=== PATIENT | female | born 1995 | race American Indian/Alaskan Native ===

== ENCOUNTER 2017-02-01 20:58 | Emergency (ER) | payer MEDICAID, OTHER ==
[2017-02-01 21:09] VITALS: BP 131/69
--- NOTE | 2017-02-03 01:03 | ED Elopement Review ---
ED Pt Elopement review - Call Back decision Pt Call Back Decision: Pt to F/U with PMD
== END 2017-02-01 22:20 | disposition left against medical advice (07) ==
LOC: ED 20:58
DX: K08.89 Other specified disorders of teeth and supporting structures (principal); R22.0 Localized swelling, mass and lump, head; Z53.21 Procedure and treatment not carried out due to patient leaving prior to being seen by health care provider

== ENCOUNTER 2017-05-22 14:54 | Emergency (ER) | payer MEDICAID ==
[2017-05-22 15:09] VITALS: BP 125/70
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
--- NOTE | 2017-05-26 00:07 | ED Elopement Review ---
ED Pt Elopement review - Call Back decision Pt Call Back Decision: Pt to F/U with PMD
== END 2017-05-22 21:25 | disposition left against medical advice (07) ==
LOC: ED 14:54
DX: O9A.212 Injury, poisoning and certain other consequences of external causes complicating pregnancy, second trimester (principal); S00.83XA Contusion of other part of head, initial encounter; Z3A.21 21 weeks gestation of pregnancy; V87.8XXA Person injured in other specified noncollision transport accidents involving motor vehicle (traffic), initial encounter; Y93.89 Activity, other specified; Y99.9 Unspecified external cause status; Y92.89 Other specified places as the place of occurrence of the external cause; Z53.21 Procedure and treatment not carried out due to patient leaving prior to being seen by health care provider

== ENCOUNTER 2017-05-23 20:38 | Emergency (ER) | payer MEDICAID ==
[2017-05-23 23:04] LABS: Hematocrit 34.3 % (30.3-42.9); Hemoglobin 11.9 gm/dl (10.1-14.3); Mean Corpuscular HGB Conc 35 % (30-34); Mean Corpuscular Hemoglobin 30 pg (28-32); Mean Corpuscular Volume 86 fl (79-97); Platelet Count 182 K/mm3 (140-440); Red Blood Count 3.99 M/mm3 (3.65-5.03); Red Cell Distribution Width 14.1 % (13.2-15.2); White Blood Count 14.7 K/mm3 (4.5-11.0)
[2017-05-23 23:09] LABS: Anion Gap 18 mmol/L; Blood Urea Nitrogen 6 mg/dL (7-17); Calcium 8.9 mg/dL (8.4-10.2); Carbon Dioxide 20 mmol/L (22-30); Chloride 102.2 mmol/L (98-107); Glucose 84 mg/dL (65-100); Potassium 3.6 mmol/L (3.6-5.0); Sodium 137 mmol/L (137-145)
[2017-05-24 11:03] VITALS: BP 120/80
== END 2017-05-23 22:28 | disposition left against medical advice (07) ==
LOC: TRG 20:38 → ED 20:38 → TRG 20:51 → ED 21:59 → EDSTATUS 21:59 → TRG 21:59 → ED 22:23
DX: O26.892 Other specified pregnancy related conditions, second trimester (principal); R51 Headache; Z53.21 Procedure and treatment not carried out due to patient leaving prior to being seen by health care provider
CPT/HCPCS: 36415; 80048; 83735; 85027

== ENCOUNTER 2017-09-15 12:28 | Outpatient (CLI) | payer MEDICAID ==
[2017-09-15 14:18] VITALS: BP 132/84
--- NOTE | 2017-09-15 14:25 | Ultrasound Report ---
ULTRASOUND OB LIMITED History: well being Technique: Transabdominal ultrasound with Doppler interrogation. Gestation: Single Position: Cephalic Amniotic Fluid: Normal CHINTAN = 8.5 cm Heart Rate: 130 BPM
== END 2017-09-15 14:45 | disposition home or self-care (01) ==
LOC: TRG 12:28
PROVIDERS: ATTEND Obstetrics & Gynecology
DX: O99.333 Smoking (tobacco) complicating pregnancy, third trimester (principal); O47.1 False labor at or after 37 completed weeks of gestation; Z3A.38 38 weeks gestation of pregnancy
CPT/HCPCS: 59025; 76815

== ENCOUNTER 2017-09-19 12:19 | Inpatient (IN) | payer MEDICAID ==
[2017-09-19] MEDS ORDERED: ZOFRAN IV PRN ×2 (12:26→22:10)
[2017-09-19] MEDS ORDERED: XYLOCAINE 2% INFILTRATI ONE (12:26)
[2017-09-19] MEDS ORDERED: ePHEDrine SULFATE IV PRN ×2 (12:26→16:12)
[2017-09-19] MEDS ORDERED: SUBLIMAZE IV PRN (12:26)
[2017-09-19] MEDS ORDERED: BRETHINE SUB-Q PRN (12:26)
[2017-09-19] MEDS ORDERED: MINERAL OIL PO PRN (12:26)
--- NOTE | 2017-09-19 12:32 | History and Physical Report ---
History of Present Illness Date of examination: 09/19/17 Date of admission: 09/19/17 12:19 Chief complaint: contractions and blood show - sent from office in labor 4-/-1 BBOW History of present illness: EDC Calculations by LMP: 09/29/2017 Past History : 1 Term Births: 0 Premature Births: 0 Living Children: 0 Para: 0 Mult. Births: 0 Prev : 0 Prev. attempt? 0 Aborta: 0 Elect. Ab: 0 Spont. Ab: 0 Ectopics: 0 Past Medical History: Asthma Past Surgical History: Negative Past Surgical History Family History Summary: Other family member - Has No Family History of Ovarvian Cancer - Entered On: 07/2017 Other family member - Has No Family History of Colon Cancer - Entered On: 2016 Other family member - Has No Family History of Breast Cancer - Entered On: 2016 Other family member - Has Family History of Lung Cancer - Entered On: 03/28/2017 Social History: Patient is single Risk Factors: Smoked Tobacco Use: Current every day smoker Cigarettes: Yes -- 1/2 pack(s) per day, Year started: 2013 Counseled to quit/cut down: yes Drug use: no Alcohol use: no Dietary Counseling: pn yes Past Medical History Surgery (Non-private client advisor): Negative Past Surgical History Abnormal PAP: negative Uterine Anomaly: negative Social Hx: Patient is single Infection History Hx of STD: chlamydia Personal hx. of genital herpes: no Partner hx. of genital herpes: no Infection History Comments: Trichomonas Genetic History Congenital Heart Defect: Mom: no Dad: no Samantha Disease: Mom: no Dad: no Thalassemia Mom: no Dad: no Neural Tube Defect Mom: no Dad: no Down's Syndrome Mom: no Dad: no Colin-Sachs Mom: no Dad: no Sickle Cell Disease/Trait Mom: no Dad: no Hemophilia Mom: no Dad: no Muscular Dystrophy Mom: no Dad: no Cystic Fibrosis Mom: no Dad: no [place] Chorea Mom: no Dad: no Mental Retardation Mom: no Dad: no Fragile X Mom: no Dad: no Other Genetic/Chromosomal Disorder Mom: no Dad: no Child w/other defect Mom: no Dad: no Enviromental Exposures Xray Exposure: no Medication, drug, or alcohol use since LMP: no Chemical/Other Exposure: no Exposure to Cat Liter: no Active Medications (reviewed today): None Current Allergies (reviewed today): No known allergies Past History Past Medical History: asthma, other Past Surgical History: no surgical history VOICE NETWORK ENGINEER History: other (see HPI) - Obstetrical History Expected Date of Delivery: 09/29/17 Actual Gestation: 38 Week(s) 4 Day(s) : 1 Para: 0 Hx # Term Pregnancies: 0 Number of Pregnancies: 0 Spontaneous Abortions: 0 Induced : 0 Number of Living Children: 0 Medications and Allergies Allergies Allergy/AdvReac Type Severity Reaction Status Date / Time shellfish derived Allergy Anaphylaxis Verified 05/22/17 15:09 Home Medications Medication Instructions Recorded Confirmed Last Taken Type Albuterol (Nf) 2 puff IH BID PRN 03/26/16 05/22/17 Unknown History Review of Systems All systems: negative - Physical Exam Breasts: Positive: normal Cardiovascular: Regular rate Lungs: Positive: Clear to auscultation, Normal air movement Abdomen: Positive: normal appearance, soft Genitourinary (Female): Positive: normal external genitalia, normal perenium Vulva: both: normal Vagina: Positive: normal moisture Uterus: Positive: normal size, normal contour Anus/Rectum: Positive: normal perianal skin Extremities: Positive: normal Deep Tendon Reflex Grade: Normal +2 - Obstetrical FHR: auscultation normal Uterine Contraction Monitor Mode: External Cervical Dilatation: 4.5 (BBOW) Cervical Effacement Percentage: 100 station: -1 Results All other labs normal. Patient: BRIE MARTINEZ ID: [id number] Note: All result statuses are Final unless otherwise noted. Tests: (1) Profile I ([id number]) Order Note: Clinical Information: SRC:UR HBsAg Screen Negative Negative *1 Rubella Antibodies, IgG 4.28 index Immune >0.99 *2 Non-immune <0.90 Equivocal 0.90 - 0.99 Immune >0.99 ABO Grouping B *3 Rh Factor Positive *4 Please note: Prior records for this patient's ABO / Rh type are not available for additional verification. Antibody Screen Negative Negative *5 RPR Non Reactive Non Reactive *6 WBC [H] 11.9 x10E3/uL 3.4-10.8 *7 RBC 3.95 x10E6/uL 3.77-5.28 *8 Hemoglobin 11.3 g/dL 11.1-15.9 *9 Hematocrit [L] 33.4 % 34.0-46.6 *10 MCV 85 fL 79-97 *11 MCH 28.6 pg 26.6-33.0 *12 MCHC 33.8 g/dL 31.5-35.7 *13 RDW 15.4 % 12.3-15.4 *14 Platelets 190 x10E3/uL 150-379 *15 Neutrophils 76 % *16 Lymphs 18 % *17 Monocytes 5 % *18 Eos 1 % *19 Basos 0 % *20 ! Immature Cells <No Reported Value> *21 Neutrophils (Absolute) [H] 9.0 x10E3/uL 1.4-7.0 *22 Lymphs (Absolute) 2.1 x10E3/uL 0.7-3.1 *23 Monocytes(Absolute) 0.6 x10E3/uL 0.1-0.9 *24 Eos (Absolute) 0.1 x10E3/uL 0.0-0.4 *25 Baso (Absolute) 0.0 x10E3/uL 0.0-0.2 *26 ! Immature Granulocytes 0 % *27 ! Immature Grans (Abs) 0.0 x10E3/uL 0.0-0.1 *28 ! NRBC <No Reported Value> *29 Hematology Comments: <No Reported Value> *30 Tests: (2) AFP Tetra ([id number]) ! Results Report *31 ! Test Results: *Screen Negative* *32 ! Gest. Age on Collection Date 15.0 WEEKS *33 ! Gestat. Age Based On LMP *34 ! Maternal Age At HENRY 21[age]5 YEARS *35 ! Race Black *36 ! Weight 133 lbs *37 ! Insulin Dep Diabetes No *38 ! Multiple Gestation No *39 ! AFP Value 70.9 ng/mL *40 ! AFP MoM 2.14 *41 ! hCG Value 84079 mIU/mL *42 ! hCG MoM 1.18 *43 ! uE3 Value 0.56 ng/mL *44 ! uE3 MoM 0.91 *45 ! RAMA Value 145.64 pg/mL *46 ! RAMA MoM 0.70 *47 ! OSBR Risk 1 IN 1188 *48 ! DSR (Second Trimester) 1 [place] [address] *49 ! DSR (By Age) 1 IN 1139 *50 ! T18 Risk Not increased *51 ! T18 (By Age) 1:4436 *52 ! Interpretation NL42 *53 Interpretation: Screen Negative This result is screen negative for OSB, Down Syndrome and Trisomy 18. The AFP MoM and patient specific risks calculated are based on the gestational age and the clinical information provided. This test can identify up to 80% of open neural tube defects. Closed neural tube defects and some open defects may not be detected by this test. The combination of maternal age, AFP, hCG, uE3, and RAMA identifies 75-80% of Down Syndrome. The combination of maternal age, AFP, hCG and uE3 identifies 60% of Trisomy 18 pregnancies. The [employer] [employer] recommends amniocentesis be offered to women age 35 and older. Recalculations are not recommended when gestational dating by LMP and ultrasound are within 10 days. ! Comments: [facility] *54 Danielle Main, PhD, [facility] Director, Biochemical and Molecular Genetics References: Available Upon Request. Multiples Of Median Cutoffs Abbreviation Definitions For AFP Elevations IDD- Insulin Dep Diabetes [place] 2.5 Black 2.8 OSBR- Open Spina Bifida IDD 2.0 Twins 4.5 Risk DSR Cutoff 1:270 DSR- Down Syndrome Risk T18 Cutoff 1:100 T18- Trisomy 18 Down Syndrome and Trisomy 18 screening are considered Investigational For further inquiries contact [employer] Services at [phone]. ! PDF . *55 Tests: (3) Cystic Fibrosis Profile ([id number]) ! CF, Screen Comment: *56 RESULTS: Negative for 32 mutations analyzed INTERPRETATION: This individual is negative for the mutations analyzed. This negative result may need further interpretation depending on the clinical indication. This result reduces but does not eliminate the risk to be a CF carrier. COMMENTS: The detection rate varies with ethnicity and is listed below. The presence of an undetected mutation in the CF gene cannot be ruled out. In the absence of family history, the remaining risk that a person with a negative result could have at least one CF mutation is listed in the table. If there is a family history of CF, these risk figures do not apply. As detailed information regarding this individual's family history would permit a more accurate assessment of this individual's risk to be a carrier of cystic fibrosis, please contact [employer] at for a revised report. Mutation Detection Detection rates are based on mutation Rates among Ethnic frequencies in patients affected with Groups cystic fibrosis. Among individuals with an atypical or mild presentation (e.g. congenital absence of the vas deferens, pancreatitis) detection rates may vary from those provided here: Carrier risk reduction when no family history Detection Ethnicity Rate Ashkenazi 10/13 to 97% Latter Day 10/12 to 90% (non-) -Malagasy to 69% to 73% to 55% This interpretation is based on the clinical and family relationship information provided and the current understanding of the molecular genetics of this condition. MUTATIONS ANALYZED: G85E V520F T5344O 2183AA to G R117H G542X D9907T 2184delA R334W S549N 394delTT 2789+5G to A R347H S549R 621+1G to T 3120+1G to A R347P G551D 711+1G to T 3659delC A455E R553X 1078delT 3849+10kbC to T [id number] R560T 1717-1G to A 3876delA [id number] R0728S 1898+1G to A 3905insT METHODS/LIMITATIONS: DNA is isolated from the sample and tested for the 32 CF mutations on the [employer] Array Platform ([employer]). Regions of the CFTR gene are amplified enzymatically and subjected to a solution-phase multiplex allele-specific primer extension with subsequent hybridization to a bead array and fluorescence detection. Polymorphisms F508C, I506V and I507V are included in this panel to rule out false positive [id number] homozygotes. Reflex testing of 5T is included in the panel for R117H interpretation. False positive or negative results may occur for reasons that include genetic variants, blood transfusions, bone marrow transplantation, erroneous representation of family relationships or contamination of a sample with maternal cells. REFERENCES: 1. Updates on Carrier Screening for Cystic Fibrosis. (2011) Am J Ob Gynecol 117(4):6243-3907 2. Joseph et al. (2004) [facility] 6:387-91 3. Kit et al. (2002) [facility] 4:379-391 4. Preconception and carrier screening for cystic fibrosis: (2001)ACOG.ACMG publication Results Released By: Lee Alvarado M.D., Chip Bin Operator Report Released By: Lee Alvarado M.D., Chip Bin Operator ! Comment: SPRCS *57 The assay provides information intended to be used for carrier screening in adults of reproductive age, as an aid in screening, and as a confirmatory test for another medically established diagnosis in newborns and children. The test is not indicated for use in diagnostic testing, pre-implantation screening, or for any stand-alone diagnostic purposes without confirmation by another medically established diagnostic product or procedure. Tests: (4) HB Solu + Rflx Frac ([id number]) Hemoglobin (Hgb) Solubility Negative Negative *58 Tests: (5) Panel 633525 ([id number]) HIV Screen 4th Generation wRfx Non Reactive Non Reactive *59 Tests: (6) HCV Ab w/Rflx to Verification ([id number]) ! HCV Ab <0.1 s/co ratio 0.0-0.9 *60 Tests: (7) Comment: ([id number]) ! Comment: SPR *61 Non reactive HCV antibody screen is consistent with no HCV infection, unless recent infection is suspected or other evidence exists to indicate HCV infection. Tests: (8) Urine Culture, Routine ([id number]) Urine Culture, Routine Final report *62 Tests: (9) Result ([id number]) ! Result 1 No growth *63 Tests: (1) Chlamydia/GC Amplification ([id number]) Order Note: Clinical Information: SRC:VR SRC:UR Chlamydia trachomatis, IAN Negative Negative *1 Neisseria gonorrhoeae, IAN Negative Negative *2 Tests: (2) Strep Gp B IAN ([id number]) ! Strep Gp B IAN Negative Negative *3 Assessment and Plan 22y/o presented to office today w c/o contractions since 0600 and bloody show. SVE 4-5/100/-1 with BBOW, vertex noted. Admission orders in EMR. Patient would like epidural. Anticipate . - Patient Problems (1) Active labor at term Current Visit: Yes Status: Acute (2) 38 weeks gestation of Current Visit: Yes Status: Acute
[2017-09-19] MEDS ORDERED: PITOCin/NS 20 UNIT/1000ML DRIP 20 UNITS/1,000 ML BAG IV SCH ×2 (13:00→22:10)
[2017-09-19 13:23] LABS: Hematocrit 36.2 % (30.3-42.9); Hemoglobin 12.7 gm/dl (10.1-14.3); Mean Corpuscular HGB Conc 35 % (30-34); Mean Corpuscular Hemoglobin 30 pg (28-32); Mean Corpuscular Volume 84 fl (79-97); Platelet Count 162 K/mm3 (140-440); Red Blood Count 4.31 M/mm3 (3.65-5.03); Red Cell Distribution Width 13.9 % (13.2-15.2)
[2017-09-19] MEDS: PITOCin/NS 30 UNIT/500ML 30 UNITS/500 ML BAG IV SCH ×2 (15:06→15:44)
[2017-09-19] MEDS: LACTATED RINGERS 1,000 ML IV SCH ×2 (15:33→18:06)
[2017-09-19] MEDS ORDERED: fentaNYL-BUPIV 2 MCG/ML-0.125% 200 MCG/100 ML BAG EPIDURAL ONE (15:53)
[2017-09-19] MEDS ORDERED: NARCAN 2 MG/2 ML IV PRN (16:12)
--- NOTE | 2017-09-19 16:12 | Anesthesia Consultation ---
Anesthesia Consult and Med Hx Date of service: 09/19/17 - Airway Anesthetic Teeth Evaluation: Good ROM Head & Neck: Adequate Mental/Hyoid Distance: Adequate Mallampati Class: Class II Intubation Access Assessment: Good - Pulmonary Exam CTA: Yes - Cardiac Exam Cardiac Exam: No Murmur - Pre-Operative Health Status ASA Pre-Surgery Classification: ASA2 Proposed Anesthetic Plan: Epidural - Pulmonary Hx Asthma: Yes COPD: No Hx Pneumonia: No - Cardiovascular System Hx Hypertension: No - Central Nervous System Hx Seizures: No Hx Psychiatric Problems: No - Endocrine Hx Renal Disease: No Hx End Stage Renal Disease: No Hx Hypothyroidism: No Hx Hyperthyroidism: No - Hematic Hx Anemia: No Hx Sickle Cell Disease: No - Other Systems Hx Alcohol Use: No
--- NOTE | 2017-09-19 16:52 | Progress Note ---
Assessment and Plan patient comfortable s/p epidural. Pitocin infusing @ 12, SROM w/ clear fluid. FHT CAT 1, early decels noted. Continue with current management and anticipate vaginal delivery. - Patient Problems (1) Active labor at term Current Visit: Yes Status: Acute (2) 38 weeks gestation of Current Visit: Yes Status: Acute Subjective - Subjective Date of service: 09/19/17 Principal diagnosis: IUP @ 38 weeks, SROM Interval history: EDC Calculations by LMP: 09/29/2017 Past History : 1 Term Births: 0 Premature Births: 0 Living Children: 0 Para: 0 Mult. Births: 0 Prev : 0 Prev. attempt? 0 Aborta: 0 Elect. Ab: 0 Spont. Ab: 0 Ectopics: 0 Past Medical History: Asthma Past Surgical History: Negative Past Surgical History Family History Summary: Other family member - Has No Family History of Ovarvian Cancer - Entered On: 07/2017 Other family member - Has No Family History of Colon Cancer - Entered On: 2016 Other family member - Has No Family History of Breast Cancer - Entered On: 2016 Other family member - Has Family History of Lung Cancer - Entered On: 03/28/2017 Social History: Patient is single Risk Factors: Smoked Tobacco Use: Current every day smoker Cigarettes: Yes -- 1/2 pack(s) per day, Year started: 2013 Counseled to quit/cut down: yes Drug use: no Alcohol use: no Dietary Counseling: pn yes Past Medical History 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 of genital herpes: no Partner hx. of genital herpes: no Infection History Comments: Trichomonas Genetic History Congenital Heart Defect: Mom: no Dad: no Samantha Disease: Mom: no Dad: no Thalassemia Mom: no Dad: no Neural Tube Defect Mom: no Dad: no Down's Syndrome Mom: no Dad: no Colin-Sachs Mom: no Dad: no Sickle Cell Disease/Trait Mom: no Dad: no Hemophilia Mom: no Dad: no Muscular Dystrophy Mom: no Dad: no Cystic Fibrosis Mom: no Dad: no [place] Chorea Mom: no Dad: no Mental Retardation Mom: no Dad: no Fragile X Mom: no Dad: no Other Genetic/Chromosomal Disorder Mom: no Dad: no Child w/other defect Mom: no Dad: no Enviromental Exposures Xray Exposure: no Medication, drug, or alcohol use since LMP: no Chemical/Other Exposure: no Exposure to Cat Liter: no Active Medications (reviewed today): None Current Allergies (reviewed today): No known allergies Patient reports: no new complaints (comfortable with epidural) Objective - Vital Signs Vital Signs: Vital Signs - 12hr 09/19/17 09/19/17 09/19/17 12:57 13:02 13:07 Temperature Pulse Rate 100 H 98 H 91 H Respiratory Rate Blood Pressure Blood Pressure [Left] O2 Sat by Pulse 98 98 98 Oximetry 09/19/17 09/19/17 09/19/17 13:09 13:12 13:17 Temperature Pulse Rate 91 H 95 H 94 H Respiratory Rate Blood Pressure 124/79 Blood Pressure [Left] O2 Sat by Pulse 98 98 Oximetry 09/19/17 09/19/17 09/19/17 13:22 13:27 13:32 Temperature Pulse Rate 88 96 H 86 Respiratory Rate Blood Pressure Blood Pressure [Left] O2 Sat by Pulse 98 98 98 Oximetry 09/19/17 09/19/17 09/19/17 13:37 13:42 13:47 Temperature Pulse Rate 86 101 H 87 Respiratory Rate Blood Pressure Blood Pressure [Left] O2 Sat by Pulse 98 98 98 Oximetry 09/19/17 09/19/17 09/19/17 13:52 13:57 14:02 Temperature 98.2 F Pulse Rate 99 H 99 H 92 H Respiratory 16 Rate Blood Pressure Blood Pressure 124/79 [Left] O2 Sat by Pulse 99 99 98 Oximetry 09/19/17 09/19/17 09/19/17 14:07 14:12 14:17 Temperature Pulse Rate 100 H 89 105 H Respiratory Rate Blood Pressure Blood Pressure [Left] O2 Sat by Pulse 97 98 98 Oximetry 09/19/17 09/19/17 09/19/17 14:22 14:27 14:32 Temperature Pulse Rate 88 101 H 75 Respiratory Rate Blood Pressure Blood Pressure [Left] O2 Sat by Pulse 98 98 98 Oximetry 09/19/17 09/19/17 09/19/17 14:38 14:43 14:48 Temperature Pulse Rate 96 H 94 H 85 Respiratory Rate Blood Pressure Blood Pressure [Left] O2 Sat by Pulse 97 98 100 Oximetry 09/19/17 09/19/17 09/19/17 14:53 14:58 15:00 Temperature Pulse Rate 104 H 108 H 103 H Respiratory Rate Blood Pressure Blood Pressure [Left] O2 Sat by Pulse 97 98 90 Oximetry 09/19/17 09/19/17 09/19/17 15:03 15:08 15:13 Temperature Pulse Rate 102 H 94 H 104 H Respiratory Rate Blood Pressure Blood Pressure [Left] O2 Sat by Pulse 98 98 99 Oximetry 09/19/17 09/19/17 09/19/17 15:14 15:18 15:23 Temperature Pulse Rate 84 104 H 90 Respiratory Rate Blood Pressure Blood Pressure [Left] O2 Sat by Pulse 94 100 99 Oximetry 09/19/17 09/19/17 09/19/17 15:28 15:33 15:38 Temperature Pulse Rate 92 H 91 H 106 H Respiratory Rate Blood Pressure Blood Pressure [Left] O2 Sat by Pulse 94 99 98 Oximetry 09/19/17 09/19/17 09/19/17 15:43 15:48 15:53 Temperature Pulse Rate 99 H 94 H 97 H Respiratory Rate Blood Pressure Blood Pressure [Left] O2 Sat by Pulse 99 98 97 Oximetry 09/19/17 09/19/17 09/19/17 15:54 15:58 16:01 Temperature Pulse Rate 97 H 107 H 61 Respiratory Rate Blood Pressure Blood Pressure [Left] O2 Sat by Pulse 92 98 0 L Oximetry 09/19/17 09/19/17 09/19/17 16:03 16:05 16:08 Temperature Pulse Rate 116 H 126 H 100 H Respiratory Rate Blood Pressure 132/84 Blood Pressure [Left] O2 Sat by Pulse 98 98 Oximetry 09/19/17 09/19/17 09/19/17 16:12 16:13 16:16 Temperature Pulse Rate 100 H 93 H 90 Respiratory Rate Blood Pressure 117/83 121/58 Blood Pressure [Left] O2 Sat by Pulse 98 Oximetry 09/19/17 09/19/17 09/19/17 16:18 16:20 16:23 Temperature Pulse Rate 104 H 114 H 103 H Respiratory Rate Blood Pressure 121/61 Blood Pressure [Left] O2 Sat by Pulse 98 96 Oximetry 09/19/17 09/19/17 09/19/17 16:26 16:28 16:33 Temperature Pulse Rate 93 H 90 85 Respiratory Rate Blood Pressure 140/68 Blood Pressure [Left] O2 Sat by Pulse 98 99 Oximetry 09/19/17 09/19/17 09/19/17 16:34 16:36 16:38 Temperature Pulse Rate 97 H 98 H 102 H Respiratory Rate Blood Pressure 130/69 121/77 Blood Pressure [Left] O2 Sat by Pulse 99 Oximetry 09/19/17 09/19/17 09/19/17 16:41 16:43 16:45 Temperature Pulse Rate 94 H 95 H 102 H Respiratory Rate Blood Pressure 128/73 131/77 Blood Pressure [Left] O2 Sat by Pulse 100 Oximetry 09/19/17 09/19/17 16:48 16:51 Temperature Pulse Rate 94 H 112 H Respiratory Rate Blood Pressure 151/80 Blood Pressure [Left] O2 Sat by Pulse 99 Oximetry - Exam Breasts: normal Cardiovascular: Regular rate Lungs: Clear to auscultation, Normal air movement Abdomen: Present: normal appearance, soft Vulva: both: normal Uterus: Present: normal FHR: auscultation normal, category 1 Uterine Contraction Monitor Mode: External Cervical Dilatation: 8 (clear fluid) Cervical Effacement Percentage: 100 station: -1 Uterine Contraction Frequency (min): 1.5-2.5 Uterine Contraction Duration: 60 Uterine Contraction Pattern: Regular Uterine Tone Measurement Phase: Contraction Uterine Contraction Intensity: Moderate Extremities: normal Deep Tendon Reflex Grade: Normal +2 - Labs Labs: Abnormal Labs 09/19/17 13:00 WBC 13.7 H MCHC 35 H Laboratory Results - last 24 hr 09/19/17 09/19/17 13:00 13:00 WBC 13.7 H RBC 4.31 Hgb 12.7 Hct 36.2 MCV 84 MCH 30 MCHC 35 H RDW 13.9 Plt Count 162 Blood Type B POSITIVE Antibody Screen Negative
[2017-09-19] MEDS ORDERED: fentaNYL-BUPIV 2 MCG/ML-0.125% 200 MCG/100 ML BAG EPIDURAL SCH (17:00)
--- NOTE | 2017-09-19 18:59 | Event Note ---
Date: 09/19/17 Pt complete with direct OP presentation as per commission for the blind director.Deep variable noted with pushing. I d/w pt need for operative delivery for persistent cat II tracing remote from delivery. Consents for c/s to be signed and placed on the chart. All questions addressed and answered.
--- NOTE | 2017-09-19 20:13 | Procedure Note ---
OB Delivery Note - Delivery Date of Delivery: 09/19/17 ( male) Transformer Tester: DELIA VASQUEZ Estimated blood loss: 300cc - Vaginal Delivery presentation: vertex Delivery position: OA (rotated from straight OP to OA during ) Intrapartum events: mult.variable deceleratio Delivery induction: none Delivery augmentation: rupture of membranes, pitocin Delivery monitor: external uterine, internal FHT Route of delivery: Delivery placenta: spontaneous Delivery cord: nuchal cord (loose cord, delivered through), 3 umbilical vessels Episiotomy: none Delivery laceration: 1st degree Delivery repair: vicryl Anesthesia: epidural Delivery comments: Male del over intact perineum, infant rotated OA from OP during . loose nuchal cord- delivered through. no shoulder dystocia. Infant dried and stimulates, placed on mother's abdomen. with weak cry and poor tone, cord clamped and cut, taken to warmer for additional assessment and recitation. NICU called and took infant to transition nursery. Placenta del complete and intact. 1st degree vaginal lac repaired. EBL 300. apgars 6/6/8 , wt 6#6oz. Mother remains LDR stable. - A at 1 minute: 6 at 5 minutes: 6 Infant Gender: Male (10 minutes 8, wt 6#6)
[2017-09-19] MEDS ORDERED: DULCOLAX PR PRN (22:10)
[2017-09-19] MEDS ORDERED: MILK OF MAGNESIA PO PRN (22:10)
[2017-09-19] MEDS ORDERED: SODIUM CHLORIDE FLUSH SYRINGE 10 ML IV NR (22:10)
[2017-09-19] MEDS ORDERED: TUCKS PAD TP PRN (22:10)
[2017-09-19] MEDS ORDERED: LANSINOH TP PRN (22:10)
[2017-09-19] MEDS ORDERED: BENADRYL PO PRN (22:10)
[2017-09-19] MEDS ORDERED: DERMOPLAST TP PRN (22:10)
[2017-09-19] MEDS ORDERED: PHENERGAN PO PRN (22:10)
[2017-09-19] MEDS ORDERED: TYLENOL PO PRN (22:10)
[2017-09-19] MEDS: COLACE PO SCH (22:35)
[2017-09-19] MEDS: NORCO 5/325 PO PRN (22:35)
[2017-09-19] MEDS: MOTRIN PO SCH (22:35)
[2017-09-20] MEDS: MOTRIN PO SCH ×2 (05:06→18:50)
[2017-09-20] MEDS: NORCO 5/325 PO PRN ×3 (05:06→18:50)
[2017-09-20] MEDS ORDERED: BOOSTRIX IM ONE (06:00)
[2017-09-20 08:27] LABS: Hematocrit 28.8 % (30.3-42.9)
[2017-09-20] MEDS: COLACE PO SCH ×2 (10:38→21:30)
[2017-09-20] MEDS: PRENATAL VITAMIN PO SCH (10:39)
--- NOTE | 2017-09-20 11:43 | Progress Note ---
Assessment and Plan - Patient Problems (1) (normal spontaneous vaginal delivery) Current Visit: Yes Status: Acute Subjective - Subjective Date of service: 09/20/17 Principal diagnosis: IUP @ 38 weeks, SROM Interval history: doing well pp, B+ Patient reports: appetite normal, voiding normally, ambulating normally [place]: doing well Objective - Vital Signs Latest vital signs: Vital Signs Temp Pulse Resp BP BP Pulse Ox 09/20/17 04:30 98.6 F 66 16 112/73 09/20/17 00:30 98.6 F 75 16 101/69 09/19/17 21:50 98.6 F 71 16 122/70 09/19/17 21:26 83 121/60 09/19/17 21:11 93 H 121/72 09/19/17 20:55 83 119/62 09/19/17 20:46 91 H 100 09/19/17 20:41 86 121/66 09/19/17 20:40 98.2 F 83 18 121/66 100 09/19/17 20:35 102 H 99 09/19/17 20:30 97 H 100 09/19/17 20:27 93 H 115/70 09/19/17 20:26 90 94 09/19/17 20:25 102 H 99 09/19/17 20:20 98.0 F 88 18 130/64 100 09/19/17 20:15 88 100 09/19/17 20:10 102 H 100 09/19/17 20:06 104 H 130/64 09/19/17 19:51 98.7 F 109 H 18 132/63 132/63 97 09/19/17 19:22 111 H 128/58 09/19/17 19:08 113 H 100/53 09/19/17 18:53 122 H 120/61 09/19/17 18:38 120 H 136/92 09/19/17 18:22 84 142/74 09/19/17 18:08 90 141/81 09/19/17 17:53 79 116/62 09/19/17 17:36 92 H 132/63 09/19/17 17:30 96 H 127/60 09/19/17 17:27 92 H 134/65 09/19/17 17:26 90 159/74 09/19/17 17:21 91 H 133/83 01/02/18 17:17 88 151/71 09/19/17 17:11 92 H 134/85 09/19/17 17:07 85 121/78 09/19/17 17:01 90 133/75 09/19/17 16:57 95 H 131/65 /18 16:53 85 100 09/19/17 16:51 112 H 151/80 18 16:48 94 H 99 0218 16:45 102 H 131/77 18 16:43 95 H 100 0218 16:41 94 H 128/73 09/19/17 16:38 102 H 99 02 16:36 98 H 121/77 09/19/17 16:34 97 H 130/69 18 16:33 85 99 09/19/17 16:28 90 98 09/19/17 16:26 93 H 140/68 09/19/17 16:23 103 H 96 09/19/17 16:20 114 H 121/61 09/19/17 16:18 104 H 98 09/19/17 16:16 90 121/58 09/19/17 16:13 93 H 98 09/19/17 16:12 100 H 117/83 09/19/17 16:08 100 H 98 02 16:05 126 H 132/84 09/19/17 16:03 116 H 98 09/19/17 16:01 61 0 L 09/19/17 15:58 107 H 98 09/19/17 15:54 97 H 92 09/19/17 15:53 97 H 97 09/19/17 15:48 94 H 98 0218 15:43 99 H 99 09/19/17 15:38 106 H 98 /11/05 15:33 91 H 99 09/19/17 15:28 92 H 94 02 15:23 90 99 09/19/17 15:18 104 H 100 09/19/17 15:14 84 94 /0218 15:13 104 H 99 09/19/17 15:08 94 H 98 /02 15:03 102 H 98 02 15:00 103 H 90 09/19/17 14:58 108 H 98 09/19/17 14:53 104 H 97 09/19/17 14:48 85 100 09/19/17 14:43 94 H 98 09/19/17 14:38 96 H 97 09/19/17 14:32 75 98 09/19/17 14:27 101 H 98 09/19/17 14:22 88 98 09/19/17 14:17 105 H 98 09/19/17 14:12 89 98 09/19/17 14:07 100 H 97 09/19/17 14:02 92 H 98 09/19/17 13:57 99 H 99 09/19/17 13:52 98.2 F 99 H 16 124/79 99 09/19/17 13:47 87 98 09/19/17 13:42 101 H 98 09/19/17 13:37 86 98 09/19/17 13:32 86 98 09/19/17 13:27 96 H 98 09/19/17 13:22 88 98 09/19/17 13:17 94 H 98 09/19/17 13:12 95 H 98 09/19/17 13:09 91 H 124/79 09/19/17 13:07 91 H 98 09/19/17 13:02 98 H 98 09/19/17 12:57 100 H 98 Intake and Output 09/19/17 09/20/17 09/20/17 23:59 07:59 15:59 Intake Total 318.75 600 Output Total 1500 Balance 318.75 -900 Intake: IV 318.75 Lactated Ringers 1,000 ml 318.75 @ 125 mls/hr IV DIRECT ANJELICA Rx#:[id number] Intake, Free Water 600 Output: Urine 1500 Void 1500 Other: Total, Output Amount 700 # Voids Void 1 Estimated Blood Loss 300 - Exam Breasts: Present: deferred Abdomen: Present: normal appearance, soft Uterus: Present: normal, firm Extremities: Present: normal - Labs Labs: Abnormal lab results 09/19/17 09/20/17 Range/Units 13:00 08:10 WBC 13.7 H (4.5-11.0) K/mm3 Hgb 10.0 L (10.1-14.3) gm/dl Hct 28.8 L D (30.3-42.9) % MCHC 35 H (30-34) %
[2017-09-20 23:47] VITALS: BP 117/74
[2017-09-21] MEDS: MOTRIN PO SCH (01:00)
--- NOTE | 2017-09-21 06:15 | Discharge Summary ---
Providers - Providers Date of Admission: 09/19/17 12:19 Date of discharge: 09/21/17 (pt agrees with d/c) Attending physician: CHRISTOPHER DUGAN 09/19/17 22:10 Consult to Extractor Filler [CONS] Routine Reason For Exam: assistance with , SNS Primary care physician: JENNA JOHNSON Hospitalization Reason for admission: active labor Delivery: Episiotomy: none Laceration: 1st degree Incision: normal, dry, intact Other procedures: none complications: none Discharge diagnosis: IUP at term delivered [place] baby: male Hospital course: uncomplicated vaginal delivery NB male in NICU Pt sleeping No c/o voiced VSS FF below umb Lochia small H&H 07/15 Pt is asymptomatic Doing well s/p vag del NB remains in NICU P: d/c today with instructions Pt asks for DEPO for BC. Will call office for appt for son's circ RX EMLA cream given Pt will f/u in 6 weeks. Condition at discharge: Good Disposition: DC-01 TO HOME OR SELFCARE - Discharge Diagnoses (1) (normal spontaneous vaginal delivery) Status: Acute Comment: RTO 6 weeks PP care Plan - Discharge Medications Prescriptions: Ibuprofen [Motrin 800 MG tab] 800 mg PO TID PRN #30 tablet PRN Reason: Pain Lidocain2.5%/Prilocai2.5% [Emla] 5 gm TP PRN #1 tube - Provider Discharge Summary Activity: routine, no sex for 6 weeks, no heavy lifting 4 weeks, no strenuous exercise Diet: routine Instructions: routine Additional instructions: [] Smoking cessation referral if applicable(refer to patient education folder for contact #) [] Refer to [facility] Booklet Call your doctor immediately for: * Fever > 100.5 * Heavy vaginal bleeding ( >1 pad per hour) * Severe persistent headache * Shortness of breath * Reddened, hot, painful area to leg or breast * Drainage or odor from incision. * Keep incision clean and dry at all times and follow doctor's instructions regarding bathing/showering - Follow up plan Follow up: JENNA JOHNSON MD [Primary Care Provider] - 6 Weeks (Congratulations Please call [phone] to schedule your visit in 6 weeks and your son's circumcision in 1 week. Bring the EMLA cream with you to his visit. You will be instructed on applying it. DO NOT use at home. Take medications as prescribed. Call with concerns.)
[2017-09-21] MEDS ORDERED: DEPO-PROVERA (CONTRACEPTION) IM ONE ×2 (07:00→12:00)
[2017-09-21] MEDS: NORCO 5/325 PO PRN (09:22)
[2017-09-21] MEDS: PRENATAL VITAMIN PO SCH (10:40)
[2017-09-21] MEDS: COLACE PO SCH (10:40)
== END 2017-09-21 14:10 | disposition home or self-care (01) | DRG 775 ==
LOC: LD 12:19 → OB 21:52
PROVIDERS: ADMIT Obstetrics & Gynecology; ATTEND Obstetrics & Gynecology
PROC: 10E0XZZ Delivery of Products of Conception, External Approach (ICD-10-PCS; principal; 2017-09-19)
PROC: 0HQ9XZZ Repair Perineum Skin, External Approach (ICD-10-PCS; 2017-09-19)
PROC: 3E0R3BZ Introduction of Anesthetic Agent into Spinal Canal, Percutaneous Approach (ICD-10-PCS; 2017-09-19)
PROC: 00HU33Z Insertion of Infusion Device into Spinal Canal, Percutaneous Approach (ICD-10-PCS; 2017-09-19)
DX: O76 Abnormality in fetal heart rate and rhythm complicating labor and delivery (principal); O99.334 Smoking (tobacco) complicating childbirth; Z3A.38 38 weeks gestation of pregnancy; Z37.0 Single live birth; Z91.013 Allergy to seafood; F17.210 Nicotine dependence, cigarettes, uncomplicated; O99.52 Diseases of the respiratory system complicating childbirth; J45.909 Unspecified asthma, uncomplicated; O69.81X0 Labor and delivery complicated by cord around neck, without compression, not applicable or unspecified; O70.0 First degree perineal laceration during delivery
CPT/HCPCS: 36415; 85014; 85018; 85027; 86592; 86850; 86900; 86901; 99211; G0463; J1050; J2590; J7120

== ENCOUNTER 2020-09-06 08:17 | Emergency (ER) | payer SELFPAY ==
[2020-09-06] MEDS ORDERED: SODIUM CHLORIDE 0.9% 1000 ML 1,000 ML IV ONE (10:18)
[2020-09-06] MEDS ORDERED: methylPREDNISolone Sod Succinate 125 MG/2 ML INJ IV ONE (10:19)
[2020-09-06] MEDS ORDERED: diphenhydrAMINE 50 MG/ML VIAL IV ONE (10:19)
[2020-09-06] MEDS ORDERED: FAMOTIDINE 20 MG/2 ML INJ IV ONE (10:19)
--- NOTE | 2020-09-06 10:20 | Emergency Department Report ---
ED Allergic Reaction HPI - General Chief complaint: Allergic Reaction Stated complaint: ALLERGIC REACTION Time Seen by Provider: 09/06/20 09:43 Source: patient Mode of arrival: Ambulatory Limitations: No Limitations - History of Present Illness Initial Comments: 25-year-old female presents to the ER today complaining of lip swelling. Patient states that around 2 AM she noticed that her upper lip started to swell. Patient states that she was at a friend's house when it started, she states when she got home she took some Benadryl went to sleep but when she woke up the swelling got worse and so decided to come to the ER. Patient states that she has an allergy to shellfish where she gets similar swelling to her lips but she states that as far she knows she has not been exposed to shellfish, nor has she eaten anything different or new, denies any new lipsticks, make-up, face washes or any other new contacts. She is not on any chaitanya inhibitors. She denies any associated tongue or throat swelling. She denies any associated cough, shortness of breath or wheezing, hives or any other associated symptoms. MD Complaint: allergic reaction, other (Lip swelling ) -: Gradual - Related Data Home Medications Medication Instructions Recorded Confirmed Last Taken Albuterol (Nf) 2 puff IH BID PRN 03/26/16 05/22/17 Unknown Previous Rx's Medication Instructions Recorded Last Taken Type Famotidine [Pepcid] 20 mg PO BID #10 tablet 09/06/20 Unknown Rx diphenhydrAMINE [Benadryl CAP] 25 - 50 mg PO Q6HR PRN #30 capsule 09/06/20 Unknown Rx predniSONE [Deltasone] 60 mg PO QDAY #12 tab 09/06/20 Unknown Rx Allergies Allergy/AdvReac Type Severity Reaction Status Date / Time shellfish derived Allergy Anaphylaxis Verified 05/22/17 15:09 ED Review of Systems ROS: Stated complaint: ALLERGIC REACTION Other details as noted in HPI Comment: All other systems reviewed and negative Constitutional: denies: chills, fever Eyes: denies: eye pain, eye discharge, vision change ENT: other (Lip swelling). denies: throat pain Respiratory: denies: cough, shortness of breath, wheezing Cardiovascular: denies: chest pain, palpitations Skin: denies: rash, lesions, pruritus ED Past Medical Hx - Past Medical History Previous Medical History?: Yes Hx Hypertension: No Hx Congestive Heart Failure: No Hx Diabetes: No Hx Deep Vein Thrombosis: No Hx Renal Disease: No Hx Sickle Cell Disease: No Hx Seizures: No Hx Asthma: Yes Hx COPD: No Hx HIV: No - Social History Smoking Status: Current Every Day Smoker - Medications Home Medications: Home Medications Medication Instructions Recorded Confirmed Last Taken Type Albuterol (Nf) 2 puff IH BID PRN 03/26/16 05/22/17 Unknown History Famotidine [Pepcid] 20 mg PO BID #10 tablet 09/06/20 Unknown Rx diphenhydrAMINE [Benadryl CAP] 25 - 50 mg PO Q6HR PRN #30 capsule 09/06/20 Unknown Rx predniSONE [Deltasone] 60 mg PO QDAY #12 tab 09/06/20 Unknown Rx ED Physical Exam - General Limitations: No Limitations General appearance: alert, in no apparent distress - Head Head exam: Present: atraumatic, normocephalic, normal inspection - Eye Eye exam: Present: normal appearance, PERRL, EOMI Pupils: Present: normal accommodation, irregular - ENT ENT exam: Present: normal orophraynx, mucous membranes moist, normal external ear exam, other (mod to severe swelling to upper lip; mild swelling to lower lip; no tongue or throat swellingnoted) - Neck Neck exam: Present: normal inspection, full ROM - Respiratory Respiratory exam: Present: normal lung sounds bilaterally. Absent: respiratory distress - Cardiovascular Cardiovascular Exam: Present: regular rate, normal rhythm - Extremities Exam Extremities exam: Present: normal inspection - Back Exam Back exam: Present: normal inspection - Neurological Exam Neurological exam: Present: alert, oriented X3, CN II-XII intact - Psychiatric Psychiatric exam: Present: normal mood - Skin Skin exam: Present: intact, normal color. Absent: urticaria ED Course Vital Signs 09/06/20 09/06/20 08:39 13:22 Temperature 98.3 F 97.1 F L Pulse Rate 79 78 Respiratory 16 17 Rate Blood Pressure 111/76 106/57 [Right] O2 Sat by Pulse 100 100 Oximetry ED Medical Decision Making - Medical Decision Making 1302: Patient presented to the ER with complaint of swelling to her lips which started around 2 AM this morning. Patient does not recall being around anything new, and she does not take daily medication including CHAITANYA inhibitors. She does have an allergy to shellfish which results in lip swelling but she states that she has not had any seafood or any shellfish related products prior to the onset of her symptoms. She denies any difficulty breathing, coughing, wheezing, tongue or throat swelling. Patient currently resting comfortably. She is not in any acute pain or respiratory distress. Patient was observed in the ER after given Solu-Medrol and Pepcid and Benadryl with no worsening of her angioedema. Her airway is intact. There is no tongue or throat swelling. Her vital signs are stable. No indication for admission at this time. Patient will be discharged with a prescription for prednisone, Benadryl and Pepcid to continue taking for the next few days. Discussed diagnosis and treatment plan with patient. Patient expressed understanding of instructions and agree with plan. Patient stable at this time for discharge. Critical care attestation.: If time is entered above; I have spent that time in minutes in the direct care of this critically ill patient, excluding procedure time. ED Disposition Clinical Impression: Angioedema of lips Disposition: DC- TO HOME OR SELFCARE Is pt being admited?: No Does the pt Need Aspirin: No Condition: Stable Instructions: Angioedema, [id number] Additional Instructions: Take the Pepcid, Benadryl and prednisone as prescribed. Follow-up with the primary care doctor listed on your discharge instruction. If this becomes a recurrent problem you will likely need to see an smoke chaser for allergy testing. Return to the ER if your symptoms worsens or changes in any way. Prescriptions: diphenhydrAMINE [Benadryl CAP] 25 - 50 mg PO Q6HR PRN #30 capsule PRN Reason: swelling predniSONE [Deltasone] 60 mg PO QDAY #12 tab Famotidine [Pepcid] 20 mg PO BID #10 tablet Referrals: WAYNE MACK MD [Staff Physician] - 3-5 Days Forms: Work/School Release Form(ED) Time of Disposition: 13:00
[2020-09-06 13:23] VITALS: BP 106/57
== END 2020-09-06 13:22 | disposition home or self-care (01) ==
LOC: ED 08:17
DX: T78.3XXA Angioneurotic edema, initial encounter (principal); J45.909 Unspecified asthma, uncomplicated; F17.200 Nicotine dependence, unspecified, uncomplicated; Z79.899 Other long term (current) drug therapy; Z91.018 Allergy to other foods; Y92.89 Other specified places as the place of occurrence of the external cause
CPT/HCPCS: 96361; 96374; 96375; 99282; J1200; J2930; J7030